=== PATIENT | male | born 1945 | race Caucasian/White ===

== ENCOUNTER → 2017-10-16 | Outpatient (CLI) | payer MEDICARE ==
[~2017-10-16] MED LIST: ASPI325 PO; ATOR20 PO; Daily Multiple1 EACH PO; LOSA50 PO
[2017-10-16 13:38] LABS: Phosphorus, Urine 88.9 mg/dL (20.0-60.0)
[2017-10-16 13:44] LABS: Protein, Urine Quantitative 9.8 mg/dL (0.0-11.9); Uric Acid, Urine 34.2 mg/dL (7.5-49.5)
[2017-10-16 13:48] LABS: Microalbumin, Urine Quant. 9.55 mg/L (0.000-20.000)
[2017-10-17 12:53] LABS: Calcium, Urine 12.3 mg/dL (2.0-17.5); Calcium, Urine Calculation 110.7 mg/24hrs (42.0-353.0)
== END ==
LOC: LAB 12:58 → LAB SHORT 12:58
PROVIDERS: Internal Medicine Nephrology
DX: N18.2 Chronic kidney disease, stage 2 (mild) (principal); E86.9 Volume depletion, unspecified; N20.0 Calculus of kidney
CPT/HCPCS: 81050; 82043; 82131; 82340; 82507; 82570; 83945; 84105; 84133; 84156; 84300; 84560

== ENCOUNTER 2017-11-26 09:32 | Day surgery (SDC) | payer MEDICARE ==
[~2017-11-26] VITALS: Ht 177.8 cm; Wt 86.5 kg
[2017-11-26] MEDS ORDERED: ASPI81CH (10:23)
[2017-11-26] MEDS ORDERED: TAMS.4ER (10:23)
== END 2017-11-26 11:55 | disposition home or self-care (01) ==
LOC: ORSCSDS 09:32
PROVIDERS: Internal Medicine Gastroenterology
PROC: 0DBK8ZX Excision of Ascending Colon, Via Natural or Artificial Opening Endoscopic, Diagnostic (ICD-10-PCS; principal; 2017-11-26 11:15)
PROC: 0DBP8ZX Excision of Rectum, Via Natural or Artificial Opening Endoscopic, Diagnostic (ICD-10-PCS; principal; 2017-11-26 11:15)
PROC: 0DBM8ZX Excision of Descending Colon, Via Natural or Artificial Opening Endoscopic, Diagnostic (ICD-10-PCS; principal; 2017-11-26 11:15)
DX: Z12.11 Encounter for screening for malignant neoplasm of colon (principal); D12.2 Benign neoplasm of ascending colon; D12.4 Benign neoplasm of descending colon; K62.1 Rectal polyp; K64.8 Other hemorrhoids; K57.30 Diverticulosis of large intestine without perforation or abscess without bleeding; Z86.010 Personal history of colon polyps; Z79.82 Long term (current) use of aspirin; Z79.899 Other long term (current) drug therapy
CPT/HCPCS: 88305; J7120

== ENCOUNTER → 2018-07-18 | Outpatient (CLI) | payer MEDICARE ==
[~2018-07-18] MED LIST changes: +ASPI81CH; +Calcium + Vita1 EACH; +Chondroitin Su250 MG; +FISH OIL 1,0001 EAC1; +TAMS.4ER
[2018-07-18 13:18] LABS: BASOPHILS ABSOLUTE AUTO 0.02 K/mm3 (0.00-0.23); BASOPHILS PERCENT AUTO 0 % (0-2); EOSINOPHILS ABSOLUTE AUTO 0.14 K/mm3 (0.00-0.68); EOSINOPHILS PERCENT AUTO 2 % (0-6); Hematocrit 47.1 % (37.0-53.0); Hemoglobin 16.8 g/dL (13.5-17.5); IMMATURE GRAN ABSOLUTE AUTO 0.01 K/mm3 (0.00-0.10); IMMATURE GRAN PERCENT AUTO 0 % (0-1); LYMPHOCYTES ABSOLUTE AUTO 2.04 K/mm3 (0.84-5.20); LYMPHOCYTES PERCENT AUTO 32 % (21-46); MONOCYTES ABSOLUTE AUTO 0.44 K/mm3 (0.16-1.47); MONOCYTES PERCENT AUTO 7 % (4-13); Mean Corpuscular HGB 29.7 pg (26.0-34.0); Mean Corpuscular HGB Conc 35.7 g/dL (31.5-36.5); Mean Corpuscular Volume 83 fL (80-100); NEUTROPHILS ABSOLUTE AUTO 3.74 K/mm3 (1.96-9.15); NEUTROPHILS PERCENT AUTO 59 % (41-73); Platelet Count 312 K/mm3 (150-400); RDW Coefficient Variation 13.1 % (11.7-14.2); RDW Standard Deviation 39.5 fL (35.1-46.3); Red Blood Cell Count 5.65 M/mm3 (4.30-5.90); White Blood Cell Count 6.39 K/mm3 (4.00-11.30)
[2018-07-18 13:29] LABS: Alanine Aminotransfer (ALT/SGP 40 U/L (12-78); Albumin, Blood 3.5 g/dL (3.4-5.0); Albumin/Globulin Ratio 0.9 (0.8-1.8); Alk Phos 88 U/L (40-126); Anion Gap 11 mmol/L (6-16); Aspartate Aminotrans (AST/SGOT 20 U/L (12-37); Bilirubin, Total 0.5 mg/dL (0.1-1.0); Blood Urea Nitrogen 27 mg/dL (8-24); Bun/Creatinine Ratio 23.9 (12.0-20.0); CO2, Blood 26 mmol/L (21-32); Calcium, Blood 9.7 mg/dL (8.5-10.1); Chloride, Blood 102 mmol/L (98-108); Creatinine, Blood 1.13 mg/dL (0.60-1.20); Globulin, Blood 3.7 g/dL (2.2-4.0); Glomerular Filtration Rate >60 (60-); Glucose, Blood 134 mg/dL (70-99); Potassium, Blood 4.3 mmol/L (3.5-5.5); Sodium, Blood 139 mmol/L (136-145); Total Protein, Blood 7.2 g/dL (6.4-8.2)
== END | disposition home or self-care (01) ==
LOC: LAB SHORT 13:13 → LAB EV 13:13
PROVIDERS: General Practice
DX: G57.12 Meralgia paresthetica, left lower limb (principal)
CPT/HCPCS: 80053; 82607; 82746; 85025; 85651

== ENCOUNTER → 2018-09-22 | Outpatient (CLI) | payer MEDICARE | END | disposition home or self-care (01) | LOC: LAB SHORT 16:30 → LAB 16:30 | DX: A04.8 Other specified bacterial intestinal infections (principal); B96.81 Helicobacter pylori [H. pylori] as the cause of diseases classified elsewhere; K20.8 Other esophagitis; R13.10 Dysphagia, unspecified | CPT/HCPCS: 87338 ==

== ENCOUNTER 2018-12-10 11:57 | Day surgery (SDC) | payer MEDICARE ==
[~2018-12-10] VITALS: Ht 177.8 cm; Wt 84.0 kg
[~2018-12-10 11:57] MED LIST changes: +OMEPRAZOLE MAGN20 MG PO
--- NOTE | 2018-12-10 13:05 | NUR ---
12/10/18 1305 Jerald Mathur CALL LIGHT WITHIN REACH
--- NOTE | 2018-12-10 15:44 | NUR ---
12/10/18 1544 Lulu López DAUGHTER WILL 7TH GRADE TEACHER AFTER SHE GETS OFF WORK AT 1600
== END 2018-12-10 15:39 | disposition home or self-care (01) ==
LOC: ORSCSDS 11:57
PROVIDERS: Surgery
PROC: 0YU50JZ Supplement Right Inguinal Region with Synthetic Substitute, Open Approach (ICD-10-PCS; principal; 2018-12-10 13:30)
DX: K40.90 Unilateral inguinal hernia, without obstruction or gangrene, not specified as recurrent (principal); I12.9 Hypertensive chronic kidney disease with stage 1 through stage 4 chronic kidney disease, or unspecified chronic kidney disease; N18.3 Chronic kidney disease, stage 3 (moderate); G47.33 Obstructive sleep apnea (adult) (pediatric); Z79.899 Other long term (current) drug therapy
CPT/HCPCS: C1781; J0690; J1100; J2250; J2405; J2704; J3010; J7120

== ENCOUNTER 2019-04-07 10:59 | Day surgery (SDC) | payer MEDICARE ==
[~2019-04-07] VITALS: Ht 177.8 cm; Wt 84.3 kg
[~2019-04-07 10:59] MED LIST changes: -Calcium + Vita1 EACH; +Calcium + Vita1 EACH PO; -FISH OIL 1,0001 EAC1; +FISH OIL 1,0001 EAC1 PO; +Methimazole5 MG PO
--- NOTE | 2019-04-07 12:11 | NUR ---
04/07/19 1211 Maryanne Patel 1 ATTEMPT BLEW RW [address] UPPER ARM 4 BLEW 5 GOOD UPPER ARM R
== END 2019-04-07 13:45 | disposition home or self-care (01) ==
LOC: ORSCSDS 10:59
PROVIDERS: Internal Medicine Gastroenterology
PROC: 0DBP8ZX Excision of Rectum, Via Natural or Artificial Opening Endoscopic, Diagnostic (ICD-10-PCS; principal; 2019-04-07 12:45)
PROC: 0DBL8ZX Excision of Transverse Colon, Via Natural or Artificial Opening Endoscopic, Diagnostic (ICD-10-PCS; principal; 2019-04-07 12:45)
PROC: 0DBK8ZX Excision of Ascending Colon, Via Natural or Artificial Opening Endoscopic, Diagnostic (ICD-10-PCS; principal; 2019-04-07 12:45)
DX: Z12.11 Encounter for screening for malignant neoplasm of colon (principal); D12.2 Benign neoplasm of ascending colon; D12.3 Benign neoplasm of transverse colon; K62.1 Rectal polyp; K57.30 Diverticulosis of large intestine without perforation or abscess without bleeding; K64.8 Other hemorrhoids; Z86.010 Personal history of colon polyps; I10 Essential (primary) hypertension; E78.5 Hyperlipidemia, unspecified; Z79.899 Other long term (current) drug therapy
CPT/HCPCS: 88305; J2704; J7120

== ENCOUNTER 2019-06-24 06:25 | Day surgery (SDC) | payer MEDICARE ==
[~2019-06-24] VITALS: Ht 177.8 cm; Wt 85.8 kg
[2019-06-24] MEDS ORDERED: Aspir 8181 MG (07:37)
[2019-06-24] MEDS ORDERED: ASPI325 (07:38)
== END 2019-06-24 08:57 | disposition home or self-care (01) ==
LOC: ORSCSDS 06:25
PROVIDERS: Internal Medicine Gastroenterology
PROC: 0DB68ZX Excision of Stomach, Via Natural or Artificial Opening Endoscopic, Diagnostic (ICD-10-PCS; principal; 2019-06-24 08:00)
PROC: 0D758ZZ Dilation of Esophagus, Via Natural or Artificial Opening Endoscopic (ICD-10-PCS; principal; 2019-06-24 08:00)
DX: R10.13 Epigastric pain (principal); K25.9 Gastric ulcer, unspecified as acute or chronic, without hemorrhage or perforation; K29.50 Unspecified chronic gastritis without bleeding; I10 Essential (primary) hypertension; E78.5 Hyperlipidemia, unspecified; Z79.899 Other long term (current) drug therapy; G47.33 Obstructive sleep apnea (adult) (pediatric); K22.2 Esophageal obstruction; K44.9 Diaphragmatic hernia without obstruction or gangrene
CPT/HCPCS: 88305; 88342; J0330; J0461; J2405; J2704; J7120

== ENCOUNTER → 2019-07-10 | Outpatient (CLI) | payer MEDICARE ==
[~2019-07-10] MED LIST changes: +ASPI325; +Aspir 8181 MG
[2019-07-10 13:20] LABS: Protein, Urine Quantitative 13.1 mg/dL (0.0-11.9)
[2019-07-10 13:23] LABS: Microalbumin, Urine Quant. 8.38 mg/L (0.000-20.000)
== END ==
LOC: LAB 10:57 → LAB SHORT 10:57
PROVIDERS: Internal Medicine Nephrology
DX: N18.3 Chronic kidney disease, stage 3 (moderate) (principal); D63.1 Anemia in chronic kidney disease; R76.8 Other specified abnormal immunological findings in serum; R94.5 Abnormal results of liver function studies
CPT/HCPCS: 81050; 82043; 82530; 82570; 84156

== ENCOUNTER → 2020-10-10 | Outpatient (CLI) | payer MEDICARE | END | disposition home or self-care (01) | LOC: LAB 20:11 → LAB SHORT 20:11 | DX: N39.0 Urinary tract infection, site not specified (principal) | CPT/HCPCS: 87086 ==

== ENCOUNTER → 2021-05-06 | Outpatient (CLI) | payer MEDICARE ==
[~2021-05-06] MED LIST changes: +ATOR40TA PO; +CIPR500 PO; +DONEPEZIL HCL10 MG PO; +FAMO20 PO; +METHI10 PO; +METR500 PO; -Methimazole5 MG PO; +OMEGA-3 2100 S1 EACH PO
== END | disposition home or self-care (01) ==
LOC: LAB 10:42 → LAB SHORT 10:42
DX: N39.0 Urinary tract infection, site not specified (principal)
CPT/HCPCS: 87086

== ENCOUNTER 2021-05-08 22:34 | Inpatient (IN) | payer MEDICARE ==
[~2021-05-08] VITALS: Ht 177.8 cm; Wt 76.1 kg
[~2021-05-08 22:34] MED LIST changes: -ATOR40TA PO; -CIPR500 PO; -DONEPEZIL HCL10 MG PO; -FAMO20 PO; -METR500 PO; -OMEGA-3 2100 S1 EACH PO
[2021-05-08 23:22] LABS: BASOPHILS ABSOLUTE AUTO 0.06 K/mm3 (0.00-0.23); BASOPHILS PERCENT AUTO 0 % (0-2); EOSINOPHILS ABSOLUTE AUTO 0.06 K/mm3 (0.00-0.68); EOSINOPHILS PERCENT AUTO 0 % (0-6); Hematocrit 38.8 % (37.0-53.0); IMMATURE GRAN ABSOLUTE AUTO 0.17 K/mm3 (0.00-0.10); IMMATURE GRAN PERCENT AUTO 1 % (0-1); LYMPHOCYTES ABSOLUTE AUTO 1.31 K/mm3 (0.84-5.20); LYMPHOCYTES PERCENT AUTO 7 % (21-46); MONOCYTES ABSOLUTE AUTO 1.07 K/mm3 (0.16-1.47); MONOCYTES PERCENT AUTO 6 % (4-13); Mean Corpuscular HGB 29.7 pg (26.0-34.0); Mean Corpuscular HGB Conc 33.5 g/dL (31.5-36.5); Mean Corpuscular Volume 89 fL (80-100); Mean Platelet Volume 9.2 fL (9.1-12.4); NEUTROPHILS ABSOLUTE AUTO 16.41 K/mm3 (1.96-9.15); NEUTROPHILS PERCENT AUTO 86 % (41-73); Platelet Count 538 K/mm3 (150-400); RDW Standard Deviation 45.9 fL (35.1-46.3); Red Blood Cell Count 4.37 M/mm3 (4.30-5.90); White Blood Cell Count 19.08 K/mm3 (4.00-11.30)
[2021-05-08 23:42] LABS: Alanine Aminotransfer (ALT/SGP 127 U/L (12-78); Albumin, Blood 2.2 g/dL (3.4-5.0); Albumin/Globulin Ratio 0.4 (0.8-1.8); Alk Phos 138 U/L (50-136); Anion Gap 9 mmol/L (6-16); Aspartate Aminotrans (AST/SGOT 87 U/L (12-37); Blood Urea Nitrogen 74 mg/dL (8-24); Bun/Creatinine Ratio 21.6 (12.0-20.0); CO2, Blood 20 mmol/L (21-32); Calcium, Blood 9.4 mg/dL (8.5-10.1); Chloride, Blood 105 mmol/L (98-108); Creatinine, Blood 3.42 mg/dL (0.60-1.20); Globulin, Blood 5.2 g/dL (2.2-4.0); Glomerular Filtration Rate 18 (60-); Glucose, Blood 118 mg/dL (70-99); Potassium, Blood 4.7 mmol/L (3.5-5.5); Sodium, Blood 134 mmol/L (136-145); Total Protein, Blood 7.4 g/dL (6.4-8.2)
[2021-05-08] MEDS ORDERED: ATOR40TA PO (23:43)
[2021-05-09 00:17] LABS: Source, Urine Catheter
[2021-05-09 00:23] LABS: Appearance, Urine Clear (Clear); Bilirubin, Urine Neg (Neg); Blood, Urine 3+ (Neg); Color, Urine Yellow (P-Yellow); Glucose Qualitative, Urine Neg (Neg); Ketones, Urine 1+ (Neg); Leukocyte Esterase, Urine 2+ (Neg); Nitrite, Urine Neg (Neg); Protein, Urine 1+ (Neg); Specific Gravity, Urine 1.015 (1.003-1.022); Urobilinogen, Urine NORM (Normal)
[2021-05-09 00:32] LABS: Bacteria Many /hpf; Red Blood Cells, Urine 0-2 /hpf (0-2)
[2021-05-09 00:36] LABS: Squamous Epithelial Cells Few /hpf (Few); Uric Acid Crystals Mod /hpf
[2021-05-09 02:56] LABS: Troponin I <0.015 ng/mL (0.000-0.040)
[2021-05-09 03:41] LABS: SARS-Cov-2 (COVID-19) PCR, MMC NEGATIVE (NEGATIVE)
[2021-05-09 05:41] LABS: BASOPHILS ABSOLUTE AUTO 0.05 K/mm3 (0.00-0.23); BASOPHILS PERCENT AUTO 0 % (0-2); EOSINOPHILS ABSOLUTE AUTO 0.09 K/mm3 (0.00-0.68); EOSINOPHILS PERCENT AUTO 1 % (0-6); Hematocrit 40.8 % (37.0-53.0); Hemoglobin 13.6 g/dL (13.5-17.5); IMMATURE GRAN ABSOLUTE AUTO 0.09 K/mm3 (0.00-0.10); IMMATURE GRAN PERCENT AUTO 1 % (0-1); LYMPHOCYTES ABSOLUTE AUTO 1.34 K/mm3 (0.84-5.20); LYMPHOCYTES PERCENT AUTO 9 % (21-46); MONOCYTES ABSOLUTE AUTO 0.65 K/mm3 (0.16-1.47); MONOCYTES PERCENT AUTO 4 % (4-13); Mean Corpuscular HGB Conc 33.3 g/dL (31.5-36.5); Mean Corpuscular Volume 90 fL (80-100); Mean Platelet Volume 9.2 fL (9.1-12.4); NEUTROPHILS ABSOLUTE AUTO 12.62 K/mm3 (1.96-9.15); NEUTROPHILS PERCENT AUTO 85 % (41-73); Platelet Count 483 K/mm3 (150-400); RDW Coefficient Variation 14.2 % (11.7-14.2); RDW Standard Deviation 46.8 fL (35.1-46.3); Red Blood Cell Count 4.53 M/mm3 (4.30-5.90); White Blood Cell Count 14.84 K/mm3 (4.00-11.30)
[2021-05-09 06:10] LABS: Albumin, Blood 2.3 g/dL (3.4-5.0); Albumin/Globulin Ratio 0.4 (0.8-1.8); Bun/Creatinine Ratio 21.9 (12.0-20.0); Creatinine, Blood 3.11 mg/dL (0.60-1.20); Globulin, Blood 5.3 g/dL (2.2-4.0); Potassium, Blood 4.9 mmol/L (3.5-5.5); Total Protein, Blood 7.6 g/dL (6.4-8.2)
--- NOTE | 2021-05-09 06:47 | NUR ---
PATIENT IS A NEW ADMISSION THAT CAME IN FROM THE ER AT 0456 AM. PATIENT IS ADMITTED FOR DEHYDRATION AND RENAL FAILURE. PATIENT IS ALERT AND ORIENTED X4. PATIENT C/O OF FATIGUE AND SOB WITH EXERTION. PATIENT'S VITAL SIGNS ARE WNL. PATIENT'S LSC, [id number]. PATIENT IS INDEPENDENT IN HIS ROOM AND ABLE TO MAKE HIS NEEDS KNOWN. PATIENT HAD A SANDWICH WHEN HE CAME IN, PATIENT STATED "I HAVE NOT EATEN FOR ALMOST 2 WEEKS." PATIENT AMBULATED TO BATH ROOM WITH 1 ASSIST, PATIENT HAD A SMALL AMOUNT OF BM SOFT AND URINATED SMALL AMOUNT. CALL LIGHT GIVEN TO PATIENT AND BED IN LOW POSITION WILL CONTINUE TO MONITOR.
[2021-05-09] MEDS ORDERED: DONEPEZIL HCL10 MG PO (15:13)
[2021-05-09] MEDS ORDERED: OMEGA-3 2100 S1 EACH PO (15:25)
--- NOTE | 2021-05-09 17:59 | NUR ---
PT ALERT ORIENTED X 3.WITH MILD DEMENTIA,PT IS VERY PLEASANT.PT HAS NO ACUTE EVENTS T/O.PATIENT DAUGHTER VISITED,GAVE AN UPDATE TO THE DAUGHTER.PT IN BED,BED IN LOW POSITION,CALL LIGTH IN REACH WILL CONTINUE TO MONITOR.
--- NOTE | 2021-05-10 03:40 | NUR ---
ASSEMBLER FISHING FLOATS SUMMARY PT A/O X4. AMBULATES WITH SBA OR INDPENDENTLY. SLEPT WELL TONIGHT. DENIES PAIN. VSS. MEDICATED FOR ACID REFLUX OVERNIGHT. CALL LIGHT WITHIN REACH, WILL CONTINUE TO MONITOR.
[2021-05-10 07:48] LABS: Albumin, Blood 1.8 g/dL (3.4-5.0); Albumin/Globulin Ratio 0.4 (0.8-1.8); Bilirubin, Total 0.5 mg/dL (0.1-1.0); Calcium, Blood 8.5 mg/dL (8.5-10.1); Creatinine, Blood 2.23 mg/dL (0.60-1.20); Globulin, Blood 4.5 g/dL (2.2-4.0); Potassium, Blood 4.9 mmol/L (3.5-5.5); Total Protein, Blood 6.3 g/dL (6.4-8.2)
[2021-05-10 07:51] LABS: BASOPHILS ABSOLUTE AUTO 0.03 K/mm3 (0.00-0.23); BASOPHILS PERCENT AUTO 0 % (0-2); EOSINOPHILS ABSOLUTE AUTO 0.11 K/mm3 (0.00-0.68); EOSINOPHILS PERCENT AUTO 1 % (0-6); Hematocrit 33.6 % (37.0-53.0); Hemoglobin 11.1 g/dL (13.5-17.5); IMMATURE GRAN ABSOLUTE AUTO 0.05 K/mm3 (0.00-0.10); IMMATURE GRAN PERCENT AUTO 1 % (0-1); LYMPHOCYTES ABSOLUTE AUTO 1.15 K/mm3 (0.84-5.20); LYMPHOCYTES PERCENT AUTO 11 % (21-46); MONOCYTES ABSOLUTE AUTO 0.65 K/mm3 (0.16-1.47); MONOCYTES PERCENT AUTO 6 % (4-13); Mean Corpuscular HGB 29.7 pg (26.0-34.0); Mean Corpuscular Volume 90 fL (80-100); Mean Platelet Volume 9.5 fL (9.1-12.4); NEUTROPHILS PERCENT AUTO 81 % (41-73); Platelet Count 441 K/mm3 (150-400); RDW Standard Deviation 45.8 fL (35.1-46.3); Red Blood Cell Count 3.74 M/mm3 (4.30-5.90); White Blood Cell Count 10.29 K/mm3 (4.00-11.30)
--- NOTE | 2021-05-10 18:00 | NUR ---
PT IS VERY PLEASANT,PT DENIES PAIN, N/V, SOB.PT HAS NO ACUTE EVENTS T/O.PT ASSESSMENT REMAIN UNCHANGED.PT IN BED,BED IN LOW POSITION CALL LIGHT IN REACH WILL CONTINUE TO MONITOR.
[2021-05-11 10:04] LABS: BASOPHILS ABSOLUTE AUTO 0.04 K/mm3 (0.00-0.23); BASOPHILS PERCENT AUTO 0 % (0-2); EOSINOPHILS ABSOLUTE AUTO 0.13 K/mm3 (0.00-0.68); EOSINOPHILS PERCENT AUTO 1 % (0-6); Hematocrit 33.4 % (37.0-53.0); Hemoglobin 11.4 g/dL (13.5-17.5); IMMATURE GRAN ABSOLUTE AUTO 0.04 K/mm3 (0.00-0.10); IMMATURE GRAN PERCENT AUTO 0 % (0-1); LYMPHOCYTES ABSOLUTE AUTO 1.09 K/mm3 (0.84-5.20); LYMPHOCYTES PERCENT AUTO 11 % (21-46); MONOCYTES ABSOLUTE AUTO 0.61 K/mm3 (0.16-1.47); MONOCYTES PERCENT AUTO 6 % (4-13); Mean Corpuscular HGB 30.6 pg (26.0-34.0); Mean Corpuscular HGB Conc 34.1 g/dL (31.5-36.5); Mean Corpuscular Volume 90 fL (80-100); Mean Platelet Volume 9.1 fL (9.1-12.4); NEUTROPHILS ABSOLUTE AUTO 8.44 K/mm3 (1.96-9.15); NEUTROPHILS PERCENT AUTO 82 % (41-73); Platelet Count 416 K/mm3 (150-400); RDW Coefficient Variation 13.9 % (11.7-14.2); RDW Standard Deviation 45.9 fL (35.1-46.3); Red Blood Cell Count 3.73 M/mm3 (4.30-5.90); White Blood Cell Count 10.35 K/mm3 (4.00-11.30)
[2021-05-11 10:14] LABS: Bun/Creatinine Ratio 18.1 (12.0-20.0); Calcium, Blood 8.2 mg/dL (8.5-10.1); Creatinine, Blood 1.55 mg/dL (0.60-1.20); Potassium, Blood 4.6 mmol/L (3.5-5.5)
[2021-05-11] MEDS ORDERED: FAMO20 PO (16:37)
[2021-05-11] MEDS ORDERED: CIPR500 PO (16:37)
[2021-05-11] MEDS ORDERED: METR500 PO (16:38)
--- NOTE | 2021-05-11 17:00 | NUR ---
75 YOM ADMITTED WITH PERFORATED DIVERTICULM OF LARGE INTESTINE. PER DR. HA, PT. APPROPRIATE FOR DISCHARGE. PT. IS SCHEDULED FOR HOSPITAL F/U ON 05/16/21 AT 11:40 AM WITH ANDREW LEMOS. PATIENT WILL ALSO NEED GI F/U PT. AND DAUGHTER WILL ENSURE THAT GI F/U IS SCHEDULED BY TOMORROW AFTERNOON. PT. HAS DENIED ANY ADDITIONAL NEEDS AT HOME. [employer] FAMILY SUPPORT SYSTEM. NO DME NEEDS. PT. IS ESTABLISHED WITH GI DR. HOPKINS. CONTACTED DR. HOPKINS'S OFFICE AND PROVIDED THEM WITH HOSPITAL NOTES. THEY WILL BE HAVING DR. HOPKINS REVIEW FOR POSSIBLE WORK IN AND CONTACT THE PATIENT. PT. IS AWARE. I ADVISED HIM TO CALL IF HE HAS NOT HEARD FROM THEIR OFFICE BY SATURDAY. DAUGHTER PROVIDING TRANSPORTATION HOME.
--- NOTE | 2021-05-11 17:26 | NUR ---
DISCHARGE SUMMARY PATIENT DISCHARGED TO HOME. PATIENT ALERT AND ORIENTED THROUGHOUT THIS SHIFT. PATIENT UP INDEPENDENTLY TO THE BATHROOM MULTIPLE TIMES THIS SHIFT. PATIENT REPORTS IMPROVEMENT OF ABDOMINAL PAIN. IVs REMOVED PRIOR TO DISCHARGE. DAUGHTER IN THE ROOM FOR DISCHARGE INSTRUCTIONS. PATIENT AND DAUGHTER PARTICIPATED IN DISCHARGE INSTRUCTIONS, NO QUESTIONS AT THIS TIME. PATIENT HAD A BURST HEMMOROID PRIOR TO DISCHARE. DR HA IN THE ROOM TO ASSESS PRIOR TO DISCHARGE. BLEEDING RESOLVED PRIOR TO DISCHARGE. PATIENT TO VEHICLE VIA WHEELCHAIR.
== END 2021-05-11 16:55 | disposition home or self-care (01) | DRG 392 ==
LOC: ER 22:34 → MEDS 05-09 03:54
PROVIDERS: Family Medicine; Physician Assistant; ADMIT Internal Medicine
DX: K57.20 Diverticulitis of large intestine with perforation and abscess without bleeding (principal); N17.9 Acute kidney failure, unspecified; E86.0 Dehydration; K64.9 Unspecified hemorrhoids; K64.5 Perianal venous thrombosis; Z20.822 Contact with and (suspected) exposure to COVID-19; I12.9 Hypertensive chronic kidney disease with stage 1 through stage 4 chronic kidney disease, or unspecified chronic kidney disease; M19.90 Unspecified osteoarthritis, unspecified site; E78.5 Hyperlipidemia, unspecified; N18.30 Chronic kidney disease, stage 3 unspecified; Z98.890 Other specified postprocedural states; Z79.899 Other long term (current) drug therapy; E05.90 Thyrotoxicosis, unspecified without thyrotoxic crisis or storm; E86.1 Hypovolemia; Z79.82 Long term (current) use of aspirin; D72.829 Elevated white blood cell count, unspecified
CPT/HCPCS: 36415; 71045; 74176; 76536; 76705; 80048; 80053; 81001; 82248; 83605; 83690; 83735; 84439; 84443; 84484; 84630; 85025; 86140; 87040; 87086; 92526; 92610; 93005; 93010; 96361; 96365; 99285-25; A9270; G0103; J0696; J1650; J2543; J7030; U0004

== ENCOUNTER → 2021-07-11 | Outpatient (CLI) | payer MEDICARE ==
[~2021-07-11] MED LIST changes: +ATOR40TA PO; +Aspir 8181 MG PO; +CIPR500 PO; +DONEPEZIL HCL10 MG PO; +FAMO20 PO; +METR500 PO; +OMEGA-3 2100 S1 EACH PO; +SALONPAS PATCH1 EACH TOP
== END | disposition home or self-care (01) ==
LOC: LAB SHORT 14:18 → LAB 14:18
DX: R31.9 Hematuria, unspecified (principal)
CPT/HCPCS: 87086

== ENCOUNTER 2021-07-27 07:43 | Day surgery (SDC) | payer MEDICARE ==
[~2021-07-27] VITALS: Ht 177.8 cm; Wt 74.4 kg
[~2021-07-27 07:43] MED LIST changes: -Aspir 8181 MG PO; -SALONPAS PATCH1 EACH TOP
== END 2021-07-27 09:51 | disposition home or self-care (01) ==
LOC: ORSCSDS 07:43
PROVIDERS: Internal Medicine Gastroenterology
PROC: 0DJD8ZZ Inspection of Lower Intestinal Tract, Via Natural or Artificial Opening Endoscopic (ICD-10-PCS; principal; 2021-07-27 09:00)
DX: Z12.11 Encounter for screening for malignant neoplasm of colon (principal); Z87.19 Personal history of other diseases of the digestive system; Z86.010 Personal history of colon polyps; K57.30 Diverticulosis of large intestine without perforation or abscess without bleeding; K64.4 Residual hemorrhoidal skin tags; I10 Essential (primary) hypertension; E78.5 Hyperlipidemia, unspecified; K22.89 Other specified disease of esophagus; Z79.82 Long term (current) use of aspirin; Z79.899 Other long term (current) drug therapy
CPT/HCPCS: J2704; J7120

== ENCOUNTER 2021-08-01 15:56 | Emergency (ER) | payer MEDICARE ==
[~2021-08-01] VITALS: Ht 177.8 cm; Wt 74.4 kg
[2021-08-01 16:48] LABS: BASOPHILS ABSOLUTE AUTO 0.04 K/mm3 (0.00-0.23); BASOPHILS PERCENT AUTO 1 % (0-2); EOSINOPHILS ABSOLUTE AUTO 0.27 K/mm3 (0.00-0.68); EOSINOPHILS PERCENT AUTO 4 % (0-6); Hematocrit 42.9 % (37.0-53.0); Hemoglobin 14.4 g/dL (13.5-17.5); IMMATURE GRAN ABSOLUTE AUTO 0.01 K/mm3 (0.00-0.10); IMMATURE GRAN PERCENT AUTO 0 % (0-1); LYMPHOCYTES ABSOLUTE AUTO 1.87 K/mm3 (0.84-5.20); LYMPHOCYTES PERCENT AUTO 28 % (21-46); MONOCYTES ABSOLUTE AUTO 0.68 K/mm3 (0.16-1.47); MONOCYTES PERCENT AUTO 10 % (4-13); Mean Corpuscular HGB 29.8 pg (26.0-34.0); Mean Corpuscular HGB Conc 33.6 g/dL (31.5-36.5); Mean Corpuscular Volume 89 fL (80-100); Mean Platelet Volume 9.8 fL (9.1-12.4); NEUTROPHILS ABSOLUTE AUTO 3.88 K/mm3 (1.96-9.15); NEUTROPHILS PERCENT AUTO 58 % (41-73); Platelet Count 352 K/mm3 (150-400); RDW Standard Deviation 45.5 fL (35.1-46.3); Red Blood Cell Count 4.84 M/mm3 (4.30-5.90); White Blood Cell Count 6.75 K/mm3 (4.00-11.30)
[2021-08-01 17:18] LABS: Alanine Aminotransfer (ALT/SGP 74 U/L (12-78); Albumin, Blood 3.3 g/dL (3.4-5.0); Albumin/Globulin Ratio 0.8 (0.8-1.8); Alk Phos 164 U/L (50-136); Anion Gap 7 mmol/L (6-16); Aspartate Aminotrans (AST/SGOT 23 U/L (12-37); Bilirubin, Total 0.6 mg/dL (0.1-1.0); Blood Urea Nitrogen 15 mg/dL (8-24); CO2, Blood 23 mmol/L (21-32); Calcium, Blood 9.5 mg/dL (8.5-10.1); Chloride, Blood 109 mmol/L (98-108); Creatinine, Blood 1.25 mg/dL (0.60-1.20); Globulin, Blood 4.1 g/dL (2.2-4.0); Glomerular Filtration Rate 56 (60-); Glucose, Blood 97 mg/dL (70-99); Potassium, Blood 4.1 mmol/L (3.5-5.5); Sodium, Blood 139 mmol/L (136-145); Total Protein, Blood 7.4 g/dL (6.4-8.2); Troponin I <0.015 ng/mL (0.000-0.040)
[2021-08-01] MEDS ORDERED: Aspir 8181 MG PO (20:41)
[2021-08-01] MEDS ORDERED: SALONPAS PATCH1 EACH TOP (21:23)
== END 2021-08-01 21:30 | disposition home or self-care (01) ==
LOC: ER 15:56
PROVIDERS: Physician Assistant
DX: I12.9 Hypertensive chronic kidney disease with stage 1 through stage 4 chronic kidney disease, or unspecified chronic kidney disease (principal); N18.9 Chronic kidney disease, unspecified; R07.9 Chest pain, unspecified; Z79.82 Long term (current) use of aspirin; Z79.899 Other long term (current) drug therapy
CPT/HCPCS: 36415; 71046; 80053; 84484; 85025; 93005; 93010; 99285-25

== ENCOUNTER → 2022-06-02 | Outpatient (CLI) | payer MEDICARE ==
[~2022-06-02] MED LIST changes: +Aspir 8181 MG PO; +MAGNESIUM OXID500 MG PO; +SALONPAS PATCH1 EACH TOP
[2022-06-02 14:21] LABS: BASOPHILS ABSOLUTE AUTO 0.02 K/mm3 (0.00-0.23); BASOPHILS PERCENT AUTO 0 % (0-2); EOSINOPHILS ABSOLUTE AUTO 0.08 K/mm3 (0.00-0.68); EOSINOPHILS PERCENT AUTO 1 % (0-6); Hematocrit 43.3 % (37.0-53.0); Hemoglobin 15.4 g/dL (13.5-17.5); IMMATURE GRAN ABSOLUTE AUTO 0.03 K/mm3 (0.00-0.10); IMMATURE GRAN PERCENT AUTO 0 % (0-1); LYMPHOCYTES ABSOLUTE AUTO 1.25 K/mm3 (0.84-5.20); LYMPHOCYTES PERCENT AUTO 16 % (21-46); MONOCYTES ABSOLUTE AUTO 0.65 K/mm3 (0.16-1.47); MONOCYTES PERCENT AUTO 8 % (4-13); Mean Corpuscular HGB 30.3 pg (26.0-34.0); Mean Corpuscular HGB Conc 35.6 g/dL (31.5-36.5); Mean Corpuscular Volume 85 fL (80-100); Mean Platelet Volume 9.1 fL (9.1-12.4); NEUTROPHILS ABSOLUTE AUTO 5.97 K/mm3 (1.96-9.15); NEUTROPHILS PERCENT AUTO 75 % (41-73); Platelet Count 366 K/mm3 (150-400); RDW Coefficient Variation 13.6 % (11.7-14.2); RDW Standard Deviation 42.2 fL (35.1-46.3); Red Blood Cell Count 5.08 M/mm3 (4.30-5.90)
[2022-06-02 14:35] LABS: Albumin, Blood 3.7 g/dL (3.4-5.0); Bilirubin, Total 0.8 mg/dL (0.1-1.0); Calcium, Blood 9.1 mg/dL (8.5-10.1); Creatinine, Blood 2.32 mg/dL (0.60-1.20); Globulin, Blood 3.6 g/dL (2.2-4.0); Potassium, Blood 4.9 mmol/L (3.5-5.5); Total Protein, Blood 7.3 g/dL (6.4-8.2)
== END | disposition home or self-care (01) ==
LOC: LAB SHORT 14:16 → LAB 14:16
PROVIDERS: Physician Assistant
DX: R06.00 Dyspnea, unspecified (principal); R19.7 Diarrhea, unspecified
CPT/HCPCS: 80053; 83690; 84484; 85025

== ENCOUNTER 2022-07-17 13:27 | Observation (INO) | payer MEDICARE ==
[~2022-07-17] VITALS: Ht 177.8 cm; Wt 84.0 kg
[~2022-07-17 13:27] MED LIST changes: -LOSA50 PO; +LOSARTAN POTASSIUM PO
[2022-07-17 14:32] LABS: BASOPHILS ABSOLUTE AUTO 0.03 K/mm3 (0.00-0.23); BASOPHILS PERCENT AUTO 1 % (0-2); EOSINOPHILS PERCENT AUTO 2 % (0-6); Hematocrit 41.9 % (37.0-53.0); Hemoglobin 14.5 g/dL (13.5-17.5); IMMATURE GRAN ABSOLUTE AUTO 0.01 K/mm3 (0.00-0.10); IMMATURE GRAN PERCENT AUTO 0 % (0-1); LYMPHOCYTES ABSOLUTE AUTO 1.46 K/mm3 (0.84-5.20); LYMPHOCYTES PERCENT AUTO 26 % (21-46); MONOCYTES ABSOLUTE AUTO 0.54 K/mm3 (0.16-1.47); MONOCYTES PERCENT AUTO 10 % (4-13); Mean Corpuscular HGB 30.3 pg (26.0-34.0); Mean Corpuscular HGB Conc 34.6 g/dL (31.5-36.5); Mean Corpuscular Volume 88 fL (80-100); Mean Platelet Volume 9.4 fL (9.1-12.4); NEUTROPHILS ABSOLUTE AUTO 3.42 K/mm3 (1.96-9.15); NEUTROPHILS PERCENT AUTO 62 % (41-73); Platelet Count 272 K/mm3 (150-400); RDW Coefficient Variation 13.6 % (11.7-14.2); RDW Standard Deviation 44.1 fL (35.1-46.3); Red Blood Cell Count 4.79 M/mm3 (4.30-5.90); White Blood Cell Count 5.56 K/mm3 (4.00-11.30)
[2022-07-17 14:42] LABS: Albumin, Blood 3.5 g/dL (3.4-5.0); Bilirubin, Total 0.4 mg/dL (0.1-1.0); Bun/Creatinine Ratio 19.8 (12.0-20.0); Creatinine, Blood 1.72 mg/dL (0.60-1.20); Globulin, Blood 3.5 g/dL (2.2-4.0); Potassium, Blood 4.6 mmol/L (3.5-5.5)
--- NOTE | 2022-07-17 19:00 | NUR ---
Attempted to discuss medications with pt. Pt stated that he had one dose of losartan 100mg and one dose of amlodipine 10mg. Pt stated that he was going to take both of those medications this evening and would not take any medications from the hospital even if ordered by PMD or cardiology. Pt has no other doses available at bedside during this hospitalization.
[2022-07-17] MEDS ORDERED: AMLO10 PO (20:32)
[2022-07-17] MEDS ORDERED: FINA5 PO (20:34)
--- NOTE | 2022-07-17 20:50 | NUR ---
ADMISSION/CARE ASSUMPTION: PT ARRIVED TO PCU 16 AT APPROX 1830. THIS RN RECEIVED REPORT AT 1900. PT ALERT AND ORIENTED X4, ABLE TO FOLLOW COMMANDS AND MAKE NEEDS KNOWN. BP STABLE. PT SB 35-40'S, THIRD DEGREE HB NOTED ON TELE. HR TO 70'S-80'S WITH ACTIVITY. PT ASYMPTOMATIC. AFEBRILE. SATURATIONS >95% ON RA. RESPIRATIONS EVEN AND UNLABORED, LUNG SOUNDS CLEAR THROUGHOUT. NO EDEMA NOTED. PULSES STRONG AND EQUAL. SKIN OVERALL C/D/I. NPO @0000 FOR POSSIBLE PACEMAKER PLACEMENT IN AM. PT REFUSING ALL HOSPITAL MEDICATIONS, WANTING TO MANAGE HOME MEDICATIONS IND. UPDATE PLACED TO MD BY DAYSHIFT SENIOR ADMINISTRATIVE SERVICES OFFICER. SEE NURSE NOTIFY. BED IN LOW, CALL LIGHT IN REACH, WILL CONTINUE TO MONITOR.
[2022-07-18 03:38] LABS: BASOPHILS ABSOLUTE AUTO 0.03 K/mm3 (0.00-0.23); BASOPHILS PERCENT AUTO 1 % (0-2); EOSINOPHILS ABSOLUTE AUTO 0.15 K/mm3 (0.00-0.68); EOSINOPHILS PERCENT AUTO 2 % (0-6); Hemoglobin 13.6 g/dL (13.5-17.5); IMMATURE GRAN ABSOLUTE AUTO 0.01 K/mm3 (0.00-0.10); IMMATURE GRAN PERCENT AUTO 0 % (0-1); LYMPHOCYTES ABSOLUTE AUTO 2.07 K/mm3 (0.84-5.20); LYMPHOCYTES PERCENT AUTO 31 % (21-46); MONOCYTES ABSOLUTE AUTO 0.84 K/mm3 (0.16-1.47); MONOCYTES PERCENT AUTO 13 % (4-13); Mean Corpuscular HGB 30.2 pg (26.0-34.0); Mean Corpuscular HGB Conc 34.9 g/dL (31.5-36.5); Mean Corpuscular Volume 87 fL (80-100); Mean Platelet Volume 9.3 fL (9.1-12.4); NEUTROPHILS ABSOLUTE AUTO 3.52 K/mm3 (1.96-9.15); NEUTROPHILS PERCENT AUTO 53 % (41-73); Platelet Count 234 K/mm3 (150-400); RDW Coefficient Variation 13.7 % (11.7-14.2); RDW Standard Deviation 42.5 fL (35.1-46.3); Red Blood Cell Count 4.51 M/mm3 (4.30-5.90); White Blood Cell Count 6.62 K/mm3 (4.00-11.30)
[2022-07-18 04:00] LABS: Magnesium, Blood 2.1 mg/dL (1.6-2.4)
[2022-07-18 04:07] LABS: Albumin, Blood 3.2 g/dL (3.4-5.0); Albumin/Globulin Ratio 1.1 (0.8-1.8); Bilirubin, Total 0.7 mg/dL (0.1-1.0); Bun/Creatinine Ratio 17.7 (12.0-20.0); Calcium, Blood 9.7 mg/dL (8.5-10.1); Creatinine, Blood 1.86 mg/dL (0.60-1.20); Potassium, Blood 4.6 mmol/L (3.5-5.5); Total Protein, Blood 6.2 g/dL (6.4-8.2)
--- NOTE | 2022-07-18 04:38 | NUR ---
SHIFT SUMMARY: PT REMAINS ALERT AND ORIENTED X4, ABLE TO FOLLOW COMMANDS AND MAKE NEEDS KNOWN. BP STABLE, REMAINS IN THIRD DEGREE HB, HR 25-35 WHILE SLEEPING, 60'S WITH ACTIVITY. AFEBRILE. SATURATIONS >95% ON RA. NO ACUTE CHANGES SINCE ADMISSION. NPO SINCE 0000 FOR POSSIBLE PACEMAKER PLACEMENT IN AM. PT CONTINUES TO REFUSE HOSPITAL MEDICATIONS, WOULD RATHER MANAGE IND. X1 BM THIS SHIFT. ABLE TO REPOS IND IN BED, BED IN LOW, CALL LIGHT IN REACH, WILL CONTINUE TO MONITOR.
--- NOTE | 2022-07-18 10:43 | NUR ---
AM NOTE: PATIENT ALERT AND ORIENTED X4. VERY HESITANT AND ANXIOUS THIS AM IN REGARDS TO 3RD DEGREE HEART BLOCK AND POSSIBLE PACER. ASKING MANY QUESTIONS ABOUT HIS OBSTRUCTIVE SLEEP APNEA CAUSING THIS. THIS RN PROVIDED EDUCATION ON 3RD DEGREE HEART BLOCK AND SYMPTOMS. DR. PALACIOS BY THIS AM TO SEE PATIENT. PACER CONSENTS SIGNED AND IN CHART. ON ROOM AIR SATING 100%. LUNGS SOUNDING CLEAR. TELE SHOWING SB 3RD DEGREE HEART BLOCK 50-60'S. HR UP TO 80'S WITH ACTIVITY. PATIENT DENIES CARDIAC SYMPTOMS. BP STABLE. NO SIGNS OF EDEMA. REFUSING ALL HOSPITAL MEDICATIONS. PATIENT DENIES TAKING ANY OF HIS HOME MEDICATIONS THIS AM. REMAINS NPO. DENIES ABDOMINAL PAIN/NAUSEA. SKIN C/D/I. LEFT AC IV SALINE LOCKED. CALL LIGHT IN REACH. WILL CONTINUE TO MONITOR.
--- NOTE | 2022-07-18 13:12 | NUR ---
PATIENT TO HEART CENTER AT THIS TIME FOR PACER
--- NOTE | 2022-07-18 17:02 | NUR ---
POST PACER/SHIFT SUMMARY: PATIENT RETURNS TO ROOM AT 1553. POST VITALS IN PROGRESS. ALERT AND ORIENTED X4. ON ROOM AIR. TELE SHOWING SR WITH HR 70-80'S. HEART CENTER RN REPORTED PACER RATE SET TO 60 FOR DAYS AND 50 FOR NIGHTS. LEFT CHEST WALL SITE WITH DRESSING IN PLACE. SCANT DRAINAGE ON DRESSING THAT REMAINS UNCHANGED. POST PACER EDUCATION PROVIDED TO PATIENT IN WRITING AND ALSO GONE OVER VERBALLY. ARM SLING IN PLACE. PATIENT ON STRICT BEDREST. ICE PACK COVERING PACER SITE AT THIS TIME. PATIENT DENIES PAIN. POST PACER SHOUDLER PRECAUTIONS CONTINUALLY REINFORCED DURING POST VITALS. POST XRAY COMPLETED. PATIENT ABLE TO VERBALIZE AND TEACH BACK INSTRUCTIONS.
--- NOTE | 2022-07-19 04:37 | NUR ---
SHIFT SUMMARY; PT REMAINS ALERT AND ORIENTED X4, ABLE TO FOLLOW COMMANDS AND MAKE NEEDS KNOWN. ANXIOUS REGARDING CARE AT TIMES. BP STABLE, HR PACED @60, AFEBRILE, SATURATIONS >95% ON ROOM AIR. L. ARM SLING REMAINS IN PLACE. DRESSING C/D/I. MEDICATED X1 THIS SHIFT FOR PAIN. STRICT BEDREST ENFORCED PER ORDERS, PT COOPERATIVE AND UNDERSTANDING WITH CARE. BED IN LOW, ALARM ON, CALL LIGHT IN REACH, WILL REPORT TO ONCOMING RN.
[2022-07-19 05:59] LABS: BASOPHILS ABSOLUTE AUTO 0.03 K/mm3 (0.00-0.23); BASOPHILS PERCENT AUTO 1 % (0-2); EOSINOPHILS ABSOLUTE AUTO 0.13 K/mm3 (0.00-0.68); EOSINOPHILS PERCENT AUTO 2 % (0-6); Hematocrit 40.8 % (37.0-53.0); Hemoglobin 14.4 g/dL (13.5-17.5); IMMATURE GRAN ABSOLUTE AUTO 0.01 K/mm3 (0.00-0.10); IMMATURE GRAN PERCENT AUTO 0 % (0-1); LYMPHOCYTES ABSOLUTE AUTO 1.28 K/mm3 (0.84-5.20); LYMPHOCYTES PERCENT AUTO 23 % (21-46); MONOCYTES ABSOLUTE AUTO 0.51 K/mm3 (0.16-1.47); MONOCYTES PERCENT AUTO 9 % (4-13); Mean Corpuscular HGB 30.2 pg (26.0-34.0); Mean Corpuscular HGB Conc 35.3 g/dL (31.5-36.5); Mean Corpuscular Volume 86 fL (80-100); Mean Platelet Volume 9.1 fL (9.1-12.4); NEUTROPHILS ABSOLUTE AUTO 3.73 K/mm3 (1.96-9.15); NEUTROPHILS PERCENT AUTO 66 % (41-73); Platelet Count 225 K/mm3 (150-400); RDW Coefficient Variation 13.3 % (11.7-14.2); Red Blood Cell Count 4.77 M/mm3 (4.30-5.90); White Blood Cell Count 5.69 K/mm3 (4.00-11.30)
[2022-07-19 06:28] LABS: Bun/Creatinine Ratio 18.1 (12.0-20.0); Calcium, Blood 8.9 mg/dL (8.5-10.1); Creatinine, Blood 1.49 mg/dL (0.60-1.20); Potassium, Blood 4.4 mmol/L (3.5-5.5)
--- NOTE | 2022-07-19 07:58 | NUR ---
AM NOTE: PATIENT ALERT AND ORIENTED X4. AT TIMES ASKING REPETATIVE QUESTIONS. DENIES N/T. STRICT BEDREST POST PACER PLACEMENT AT THIS TIME. PACER INTERROGATION BEING DONE AT THIS TIME. MORNING CHEST XRAY COMPLETED. TELE SHOWING DUAL PACED WITH HR 60'S. PACER DRESSING WITH SCANT DRAINAGE THAT REMAINS UNCHANGED. COMPLAINS OF SOME MILD SORNESS TO LEFT SHOULDER, DENIES NEED FOR MEDICATION. ARM SLING IN PLACE AND POST PACER PRECAUTIONS CONTINUALLY REVIEWED. ON ROOM AIR, LUNGS SOUNDING CLEAR THROUGHOUT. DENIES SOB/COUGH. DENIES ABDOMINAL PAIN/NAUSEA. USING URINAL IN BED AT THIS TIME DUE TO BEDREST. CALL LIGHT IN REACH, ABLE TO MAKE NEEDS KNOWN.
--- NOTE | 2022-07-19 08:48 | NUR ---
PATIENT REFUSING AM MEDS THIS MORNING DESPITE EDUCATION.
[2022-07-19] MEDS ORDERED: CEPH500 PO (11:41)
--- NOTE | 2022-07-19 13:49 | NUR ---
DISCHARGE: NO ACUTE CHANGES, SEE PREVIOUS NOTES. VITAL SIGNS REMAIN STABLE. DISCHARGE INSTRUCTIONS REVIEWED EXTENSIVELY. PATIENT ABLE TO VERBALIZE AND TEACH BACK ALL POST PACER SHOULDER PRECAUTIONS. FOLLOW UP APPOINTMENTS REVIEWED WITH AGNEL, PACEMAKER CLINIC AND WOUND CHECK. PRESCRIPTIONS FAXED TO [facility]. IV REMOVED WNL. PATIENT CONTINUES TO WEAR SLING PER INSTRUCTIONS. TEMPORARY PACER CARD AND PACER BOX SENT HOME WITH PATIENT. PATIENT LEFT UNIT VIA WHEELCHAIR WITH ALL PERSONAL BELONGINGS AT THIS TIME.
== END 2022-07-19 14:01 | disposition home or self-care (01) ==
LOC: ER 13:27 → PCU 13:28
PROVIDERS: Internal Medicine; Student in an Organized Health Care Education/Training Program; ADMIT Internal Medicine
DX: I44.1 Atrioventricular block, second degree (principal); I44.2 Atrioventricular block, complete; N18.30 Chronic kidney disease, stage 3 unspecified; I12.9 Hypertensive chronic kidney disease with stage 1 through stage 4 chronic kidney disease, or unspecified chronic kidney disease; E78.5 Hyperlipidemia, unspecified; G47.33 Obstructive sleep apnea (adult) (pediatric); K21.9 Gastro-esophageal reflux disease without esophagitis
CPT/HCPCS: 33208; 36415; 71045; 71046; 80048; 80053; 83735; 85025; 93005; 93010; 96374; 96375; 99152; 99153; 99285-25; A9270; C1781; C1785; C1894; C1898; G0378; J0690; J1644; J2250; J3010; J7030; J7040

== ENCOUNTER 2023-06-16 06:37 | Emergency (ER) | payer MEDICARE ==
[~2023-06-16] VITALS: Ht 177.8 cm; Wt 81.7 kg
[~2023-06-16 06:37] MED LIST changes: +AMLO10 PO; +CEPH500 PO; +FINA5 PO
[2023-06-16] MEDS ORDERED: SODBIC650 (06:59)
[2023-06-16] MEDS ORDERED: METHI10 (07:00)
[2023-06-16 07:41] LABS: Source, Urine Clean Catch
[2023-06-16 07:46] LABS: BASOPHILS ABSOLUTE AUTO 0.03 K/mm3 (0.00-0.23); BASOPHILS PERCENT AUTO 0 % (0-2); EOSINOPHILS PERCENT AUTO 0 % (0-6); Hematocrit 47.1 % (37.0-53.0); Hemoglobin 16.3 g/dL (13.5-17.5); IMMATURE GRAN ABSOLUTE AUTO 0.04 K/mm3 (0.00-0.10); IMMATURE GRAN PERCENT AUTO 0 % (0-1); LYMPHOCYTES ABSOLUTE AUTO 0.53 K/mm3 (0.84-5.20); LYMPHOCYTES PERCENT AUTO 4 % (21-46); MONOCYTES ABSOLUTE AUTO 0.45 K/mm3 (0.16-1.47); MONOCYTES PERCENT AUTO 3 % (4-13); Mean Corpuscular HGB 30.4 pg (26.0-34.0); Mean Corpuscular HGB Conc 34.6 g/dL (31.5-36.5); Mean Corpuscular Volume 88 fL (80-100); Mean Platelet Volume 9.5 fL (9.1-12.4); NEUTROPHILS ABSOLUTE AUTO 13.26 K/mm3 (1.96-9.15); NEUTROPHILS PERCENT AUTO 93 % (41-73); Platelet Count 262 K/mm3 (150-400); RDW Coefficient Variation 13.3 % (11.7-14.2); RDW Standard Deviation 42.7 fL (35.1-46.3); Red Blood Cell Count 5.36 M/mm3 (4.30-5.90); White Blood Cell Count 14.31 K/mm3 (4.00-11.30)
[2023-06-16 07:53] LABS: Appearance, Urine Clear (Clear); Bilirubin, Urine Neg (Neg); Blood, Urine 1+ (Neg); Glucose Qualitative, Urine Neg (Neg); Ketones, Urine 3+ (Neg); Leukocyte Esterase, Urine Neg (Neg); Nitrite, Urine Neg (Neg); Protein, Urine 1+ (Neg); Specific Gravity, Urine 1.025 (1.003-1.022); Urobilinogen, Urine NORM (Normal)
[2023-06-16 07:59] LABS: Albumin, Blood 4.2 g/dL (3.4-5.0); Bilirubin, Total 0.9 mg/dL (0.1-1.0); Calcium, Blood 9.8 mg/dL (8.5-10.1); Creatinine, Blood 1.53 mg/dL (0.60-1.20); Globulin, Blood 4.1 g/dL (2.2-4.0); Potassium, Blood 4.5 mmol/L (3.5-5.5); Total Protein, Blood 8.3 g/dL (6.4-8.2)
[2023-06-16 08:24] LABS: Color, Urine Pale Yellow (P-Yellow)
[2023-06-16 08:25] LABS: Renal Epithelial Few /hpf (0-Rare)
[2023-06-16 08:26] LABS: Red Blood Cells, Urine 0-2 /hpf (0-2); Squamous Epithelial Cells Rare /hpf (Few); White Blood Cells, Urine 0-2 /hpf (0-5)
[2023-06-16 08:29] LABS: Bacteria Few /hpf; Mucus Mod (0-Heavy)
[2023-06-16 08:30] LABS: Transitional Epithelial Cells Rare /hpf (0-Rare)
[2023-06-16 10:00] VITALS: BP 165/81
[2023-06-16 10:20] LABS: Calcium, Ionized (POC) 1.22 mmol/L (1.10-1.46); Chloride (POC) 104 mmol/L (98-108); Creatinine (POC) 1.4 mg/dL (0.8-1.3); Glucose (ISTAT POC) 126 mg/dL (70-99); Potassium (POC) 4.6 mmol/L (3.5-5.5); Sodium (POC) 135 mmol/L (135-148); Total CO2 (POC) 21 mmol/L (21-32)
[2023-06-16] MEDS ORDERED: ACETAMINOPHEN500 MG PO (10:36)
[2023-06-16] MEDS ORDERED: ONDA4ODT SL (10:36)
== END 2023-06-16 11:03 | disposition home or self-care (01) ==
LOC: ER 06:37
PROVIDERS: Emergency Medicine
DX: R10.84 Generalized abdominal pain (principal); R73.9 Hyperglycemia, unspecified; I12.0 Hypertensive chronic kidney disease with stage 5 chronic kidney disease or end stage renal disease; N18.5 Chronic kidney disease, stage 5; Z88.8 Allergy status to other drugs, medicaments and biological substances; Z79.82 Long term (current) use of aspirin; Z79.899 Other long term (current) drug therapy
CPT/HCPCS: 74177; 80047; 80053; 81001; 83690; 85014; 85025; 96361; 96374; 96375; 99284-25; J1170; J2405; J7030; J7120; Q9967

== ENCOUNTER → 2024-02-03 | Outpatient (CLI) | payer MEDICARE ==
[~2024-02-03] MED LIST changes: +ACETAMINOPHEN500 MG PO; +METHI10; +ONDA4ODT SL; +SODBIC650
[2024-02-03 11:16] LABS: BASOPHILS ABSOLUTE AUTO 0.03 K/mm3 (0.00-0.23); BASOPHILS PERCENT AUTO 0 % (0-2); EOSINOPHILS ABSOLUTE AUTO 0.03 K/mm3 (0.00-0.68); EOSINOPHILS PERCENT AUTO 0 % (0-6); Hemoglobin 15.9 g/dL (13.5-17.5); IMMATURE GRAN ABSOLUTE AUTO 0.01 K/mm3 (0.00-0.10); IMMATURE GRAN PERCENT AUTO 0 % (0-1); LYMPHOCYTES ABSOLUTE AUTO 1.47 K/mm3 (0.84-5.20); LYMPHOCYTES PERCENT AUTO 19 % (21-46); MONOCYTES ABSOLUTE AUTO 0.51 K/mm3 (0.16-1.47); MONOCYTES PERCENT AUTO 7 % (4-13); Mean Corpuscular HGB 30.4 pg (26.0-34.0); Mean Corpuscular HGB Conc 34.6 g/dL (31.5-36.5); Mean Corpuscular Volume 88 fL (80-100); Mean Platelet Volume 9.2 fL (9.1-12.4); NEUTROPHILS ABSOLUTE AUTO 5.84 K/mm3 (1.96-9.15); NEUTROPHILS PERCENT AUTO 74 % (41-73); Platelet Count 257 K/mm3 (150-400); RDW Coefficient Variation 13.8 % (11.7-14.2); RDW Standard Deviation 44.5 fL (35.1-46.3); Red Blood Cell Count 5.23 M/mm3 (4.30-5.90); White Blood Cell Count 7.89 K/mm3 (4.00-11.30)
[2024-02-03 11:28] LABS: Albumin, Blood 3.7 g/dL (3.4-5.0); Albumin/Globulin Ratio 0.9 (0.8-1.8); Bilirubin, Total 0.8 mg/dL (0.1-1.0); Bun/Creatinine Ratio 10.2 (12.0-20.0); Calcium, Blood 9.6 mg/dL (8.5-10.1); Creatinine, Blood 1.76 mg/dL (0.60-1.20); Globulin, Blood 3.9 g/dL (2.2-4.0); Potassium, Blood 4.6 mmol/L (3.5-5.5); Total Protein, Blood 7.6 g/dL (6.4-8.2)
== END | disposition home or self-care (01) ==
LOC: LAB SHORT 11:12 → LAB 11:12
PROVIDERS: Internal Medicine
DX: R10.84 Generalized abdominal pain (principal)
CPT/HCPCS: 80053; 83690; 85025

== ENCOUNTER 2025-02-25 10:45 | Day surgery (SDC) | payer MEDICARE ==
[~2025-02-25] VITALS: Ht 177.8 cm; Wt 79.0 kg
[2025-02-25] MEDS ORDERED: URSO300 (12:03)
[2025-02-25] MEDS ORDERED: Midazolam HCL 1 MG/ML 5MLVIAL ONE (13:15)
[2025-02-25 14:45] VITALS: BP 124/87
== END 2025-02-25 14:31 | disposition home or self-care (01) ==
LOC: ORSCSDS 10:45
PROVIDERS: Internal Medicine Gastroenterology
PROC: 0DBK8ZX Excision of Ascending Colon, Via Natural or Artificial Opening Endoscopic, Diagnostic (ICD-10-PCS; principal; 2025-02-25 12:15)
PROC: 0DBH8ZX Excision of Cecum, Via Natural or Artificial Opening Endoscopic, Diagnostic (ICD-10-PCS; principal; 2025-02-25 12:15)
DX: Z12.11 Encounter for screening for malignant neoplasm of colon (principal); Z86.0101 Personal history of adenomatous and serrated colon polyps; D12.2 Benign neoplasm of ascending colon; K57.30 Diverticulosis of large intestine without perforation or abscess without bleeding; K64.4 Residual hemorrhoidal skin tags; K63.5 Polyp of colon; I10 Essential (primary) hypertension; E78.5 Hyperlipidemia, unspecified; Z79.899 Other long term (current) drug therapy
CPT/HCPCS: 88305; J2250; J2704; J7120